=== PATIENT | female | born 1945 | race Caucasian/White ===

== ENCOUNTER → 2024-03-12 12:37 | Outpatient (REF) | payer MEDICARE, OTHER, SELFPAY | LOC: WDC 12:37 | PROVIDERS: ATTENDING PHYSICIAN Family Medicine | DX: Z12.31 Encounter for screening mammogram for malignant neoplasm of breast (principal) | CPT/HCPCS: 77063; 77067 ==

== ENCOUNTER 2024-08-24 07:11 | Emergency (ER) | payer MEDICARE, OTHER, SELFPAY ==
[2024-08-24] VITALS (7 sets, daily range): BP systolic 115–134; BP diastolic 43–69
--- NOTE | 2024-08-24 08:51 | ED.GENMED ---
History of Present Illness
General
Chief Complaint: Dizziness
Source: patient
Exam Limitations: none
Time Seen by Provider: 08/24/24 08:29
History of Present Illness
History of Present Illness:
78-year-old female presents complaining of left shoulder pain after she sustained a fall 2 days ago. She fell due to her dizziness. She has been experiencing vertigo-like symptoms for the past 3 days. She has a history of vertigo in the past.
This feels very similar but is lasting longer. She denies vision change. She denies neck pain or headache. She describes a spinning sensation with position change that seems to fatigue if she sits still. No unilateral numbness weakness. No
difficulty speaking. She denies chest pain. No recent fever. She tried Dramamine at home without relief.
Past History
Past History
ED Past Medical History: HTN and NIDDM (Diet controlled)
ED Past Surgical History: Cholecystectomy, Gynecological (Hysterectomy) and Other (Hemorrhoidectomy)
Social History
Tobacco: Non-smoker
Alcohol: None
Personal:
Living: alone
Employment: Retired
Family History
Family History: Other (Noncontributory)
Phy Exam
Physical Exam
Physical Exam:
General: Well-appearing female no acute respiratory distress
HEENT: Normocephalic atraumatic pupils equal round reactive to light subtle horizontal nystagmus noted upon extraocular motion testing
Heart: Regular rate and rhythm
Lungs: Clear no wheeze
Musculoskeletal exam: The patient is slightly tender to the anterior lateral aspect of the left shoulder. No deformity decreased active range of motion slightly increased passive range of motion compared to the active however this is still painful
for her. She has increased pain with rotator cuff strength testing.
Neurologic exam: Alert and oriented no drift finger-nose intact ndgn-bh-hhki intact. Anel-Hallpike is positive reproducing symptoms of dizziness upon turning head to the right
No dysarthria or aphasia
Course
Orders/Labs/Results
Orders:
Orders
08/24/24 07:19
Electrocardiogram (*1) Urgent
Reason for Study: Vertigo / Dizzy
EKG- Treatment ONCE
Shoulder, Left, Trauma CR [CR Shoulder, Trauma - Left] Urgent
Comment:
Reason For Exam: pain
08/24/24 08:44
Complete Blood Count/With Diff Urgent
Comprehensive Metabolic Panel Urgent
08/24/24 08:49
PT Consult [Pt Eval And Treat] Urgent
Treatment: vestibular eval
Activity Level: Ambulate
08/24/24 09:43
Meclizine [Antivert] 25 mg PO NOW STA
Ondansetron Injectable [Zofran] 4 mg IV NOW STA
08/24/24 10:43
Sling Left-Treatment ONCE
Acetaminophen [Tylenol] 650 mg PO NOW STA
Abnormal Lab Results
08/24/24
08:44
WBC 11.1 H 10^3/uL
(4.8-10.8)
RBC 3.92 L 10^6/uL
(4.20-5.40)
Hgb 11.4 L g/dL
(12.0-16.0)
Hct 34.5 L %
(37.0-47.0)
MPV 10.7 H fL
(7.4-10.4)
Abs Immat Gran (auto) 0.1 H 10^3/uL
(0-0.05)
Absolute Neuts (auto) 9.1 H 10^3/uL
(1.4-6.5)
Absolute Lymphs (auto) 0.9 L 10^3/uL
(1.2-3.4)
Absolute Monos (auto) 1.1 H 10^3/uL
(0.1-0.6)
Neutrophils % 81.5 H %
(42.2-75.2)
Lymphocytes % 8.3 L %
(20.5-51.1)
Monocytes % 9.5 H %
(1.7-9.3)
Chloride 96 L mmol/L
(98-107)
BUN 49 H mg/dl
(7-17)
Creatinine 1.3 H mg/dL
(0.6-1.0)
Glucose 168 H mg/dl
(70-99)
08/24/24 08:44
08/24/24 08:44
Vital Signs
Initial and Last Documented VS:
Initial Vital Signs
Temp Pulse Resp BP Pulse Ox
98.4 F 82 18 115/48 98
08/24/24 07:15 08/24/24 07:15 08/24/24 07:15 08/24/24 07:15 08/24/24 07:15
Last Documented Vital Signs
Temp Pulse Resp BP Pulse Ox
98.4 F 82 18 122/63 98
08/24/24 07:15 08/24/24 11:30 08/24/24 11:30 08/24/24 11:00 08/24/24 07:15
MDM/Problems Addressed
Differential Diagnosis Includes:
Dizziness causing a fall. Dizziness is described as positional suspect likely vertigo. No exam findings or history concerning for CVA or dissection. She also has left shoulder pain after a fall. Consider contusion versus strain versus fracture
or dislocation. X-rays of left shoulder show degenerative joint disease but no acute finding. I suspect underlying strain of the shoulder.
EKG reviewed through triage shows sinus rhythm without ischemic changes. Basic labs pending. Will consult physical therapy for vestibular eval
*Critical Care Note
Total Time (30-74mins, 75-104mins- exclusive of procedures): Not Applicable
Update Note
Update Note:
Patient evaluated by physical therapy. They agree that she has right-sided vertigo. Do not suspect stroke. Sling was applied to her arm Tylenol given for her arm. Use Zofran and meclizine for the dizziness. A prescription was provided for
vestibular rehab. Stable for discharge. Recommend follow-up with orthopedic
ED Attending Note
-
Portions of this chart may have been created with voice recognition software.� Occasional wrong word or��sound alike� substitutions may have occurred due to the inherent limitations of voice recognition software.
Discharge Plan
Departure
Patient Disposition: Home (Routine Discharge)
Date of Disposition: 08/24/24
Time of Disposition: 11:59
Patient with high blood pressure during this ER visit?: No
Discharge Problem:
Vertigo, Left shoulder strain
Instructions: Vertigo (a type of dizziness), Muscle and Bone Pain (DC)
Prescriptions:
No Action
carvedilol 12.5 MG tablet
12.5 mg PO BID
amlodipine-atorvastatin 1 EACH tablet
1 ea PO DAILY
aspirin 81 MG tablet
81 mg PO DAILY
Lactobacillus acidophilus [Acidophilus] 1 CAP capsule
1 cap PO .BREAKFAST
vitamin E 400 UNIT capsule
400 unit PO .DINNER
cholecalciferol (vitamin D3) [Vitamin D3] 1,000 UNIT capsule
1,000 unit PO .DINNER
cinnamon bark [Cinnamon] 500 MG capsule
1,000 mg PO BID
magnesium oxide 500 MG capsule
500 mg PO .DINNER
co S28-esli oil-omega 3-E 1 EACH capsule
1 ea PO .DINNER
omega 4-jxd-pdh-fish oil [Fish Oil] 1 EACH capsule
1 ea PO BID
calcium carbonate-vitamin D3 1 EACH tablet
1,000 mg PO BID
flaxseed-omega3,6,9-fatty acid 1 EACH capsule
1 ea PO BID
biotin 1,000 MCG tablet,chewable
1,000 mcg PO .LUNCH
Referrals:
Mikel Lisa DO [Family Provider] -
Lele Rowell MD [Active] -
Activity Restrictions/Additional Instructions:
Continue with Tylenol or ibuprofen as needed for pain in your shoulder. Use sling for support. Follow-up with orthopedics for further evaluation. Use meclizine as needed for dizziness. Follow-up with vestibular rehab for your vertigo. Return if
worse other
Interventions
Interventions:
*Risk Screen - Suicide Last Done: 08/24/24 07:15
*General Assessment Last Done: 08/24/24 07:15
*Neglect/Abuse Screening Last Done: 08/24/24 07:15
Discharge Date and Time
Print Language: [place]
[2024-08-24 08:53] LABS: % Basophils 0.2 % (0-2); % Eosinophils 0.1 % (0-6); % Immature Granulocytes 0.4 % (0-0.5); % Lymphocytes 8.3 % (20.5-51.1); % Monocytes 9.5 % (1.7-9.3); % Neutrophils 81.5 % (42.2-75.2); Absolute Immature Granulocytes 0.1 10^3/uL (0-0.05); Absolute Lymphocytes 0.9 10^3/uL (1.2-3.4); Absolute Monocytes 1.1 10^3/uL (0.1-0.6); Absolute Neutrophils 9.1 10^3/uL (1.4-6.5); Hematocrit 34.5 % (37.0-47.0); Hemoglobin 11.4 g/dL (12.0-16.0); Mean Corpuscular Hgb 29.1 pg (27.0-31.0); Mean Platelet Volume 10.7 fL (7.4-10.4); Nucleated Red Blood Cells % 0 %; Platelet Count 189 10^3/uL (130-400); Red Blood Cell Count 3.92 10^6/uL (4.20-5.40); Red Cell Dist. Width 12.4 % (11.5-14.5); White Blood Cell Count 11.1 10^3/uL (4.8-10.8)
[2024-08-24 09:05] LABS: ALT (SGPT) 14 U/L (0-35); AST (SGOT) 23 U/L (14-36); Albumin 4.2 g/dl (3.5-5.0); Alkaline Phosphatase 70 U/L (38-126); Blood Urea Nitrogen 49 mg/dl (7-17); Calcium 9.3 mg/dl (8.4-10.2); Carbon Dioxide 25 mmol/L (22-30); Chloride 96 mmol/L (98-107); Glucose 168 mg/dl (70-99); Potassium 3.5 mmol/L (3.5-5.1); Sodium 135 mmol/L (135-145); eGFR 41.57
[2024-08-24] MEDS: ZOFRAN 4 MG IV (09:52)
[2024-08-24] MEDS: ANTIVERT 25 MG PO (09:53)
[2024-08-24] MEDS: TYLENOL 650 MG PO (11:39)
== END 2024-08-24 12:15 | disposition home or self-care (01) ==
LOC: EMR 07:11
PROVIDERS: Physician Assistant; EMERGENCY PHYSICIAN Emergency Medicine; FAMILY PHYSICIAN Family Medicine
DX: S46.912A Strain of unspecified muscle, fascia and tendon at shoulder and upper arm level, left arm, initial encounter (principal); W19.XXXA Unspecified fall, initial encounter; R42 Dizziness and giddiness; E11.9 Type 2 diabetes mellitus without complications; I10 Essential (primary) hypertension; Z90.49 Acquired absence of other specified parts of digestive tract; Z90.710 Acquired absence of both cervix and uterus
CPT/HCPCS: 99284; 96374; 73030; 80053; 85025; 93005

== ENCOUNTER → 2025-04-01 13:21 | Outpatient (REF) | payer MEDICARE, OTHER, SELFPAY | LOC: WDC 13:21 | PROVIDERS: ATTENDING PHYSICIAN Nurse Practitioner Family | DX: Z12.31 Encounter for screening mammogram for malignant neoplasm of breast (principal) | CPT/HCPCS: 77063; 77067 ==